=== PATIENT | male | born 1980 | race American Indian/Alaskan Native ===

== ENCOUNTER 2021-04-24 05:36 | Emergency (ER) | payer SELFPAY ==
[2021-04-24] MEDS ORDERED: SODIUM CHLORIDE 0.9% 1000 ML 1,000 ML IV ONE (05:40)
[2021-04-24] MEDS ORDERED: fentaNYL 100 MCG/2 ML INJ IV ONE (05:40)
[2021-04-24 06:17] LABS: Mean Corpuscular HGB Conc 30 % (32-34); Mean Corpuscular Volume 79 fl (84-94); Platelet Count 161 K/mm3 (140-440); Red Blood Count 4.89 M/mm3 (3.65-5.03)
--- NOTE | 2021-04-24 06:17 | Emergency Department Report ---
ED Abdominal Pain HPI - General Chief Complaint: Abdominal Pain Stated Complaint: UC FLARE-UP Time Seen by Provider: 04/24/21 05:39 Source: patient Mode of arrival: Ambulatory Limitations: No Limitations - History of Present Illness Initial Comments: Patient presents with a 2-month history of abdominal pain. He states he is having a flareup of his ulcerative colitis disease. He has moved here and does not have a specialist. He had been on prednisone before. He is describing a generalized abdominal pain. He has not had hematemesis or coffee-ground emesis. There is no melenic stool. He has no dysuria. This is his usual ulcerative colitis flareup. He states that there is no new symptomatology. Severity scale (0 -10): 9 - Related Data Previous Rx's Medication Instructions Recorded Last Taken Type Dicyclomine [Bentyl] 20 mg PO QID #30 tablet 04/24/21 Unknown Rx predniSONE [Deltasone] 50 mg PO QDAY #5 tab 04/24/21 Unknown Rx Allergies Allergy/AdvReac Type Severity Reaction Status Date / Time NSAIDS (Non-Steroidal AdvReac Unknown Verified 04/24/21 05:53 Anti-Inflamma ED Review of Systems ROS: Stated complaint: UC FLARE-UP Other details as noted in HPI Comment: All other systems reviewed and negative Constitutional: denies: fever Eyes: denies: vision change ENT: denies: epistaxis Respiratory: denies: cough Cardiovascular: denies: chest pain Endocrine: denies: unexplained weight loss Gastrointestinal: as per HPI Genitourinary: denies: dysuria Musculoskeletal: denies: back pain Skin: denies: rash Neurological: denies: headache Hematological/Lymphatic: denies: easy bruising ED Past Medical Hx - Past Medical History Previous Medical History?: Yes Additional medical history: Ulcerative colitis - Family History Family history: no significant - Medications Home Medications: Home Medications Medication Instructions Recorded Confirmed Last Taken Type Dicyclomine [Bentyl] 20 mg PO QID #30 tablet 04/24/21 Unknown Rx predniSONE [Deltasone] 50 mg PO QDAY #5 tab 04/24/21 Unknown Rx ED Physical Exam - General Limitations: No Limitations, Other (Pulsoxymeter normal) General appearance: alert, in no apparent distress - Head Head exam: Present: atraumatic, normocephalic - Eye Eye exam: Present: normal appearance, EOMI. Absent: scleral icterus - ENT ENT exam: Present: mucous membranes dry, normal external ear exam - Neck Neck exam: Present: normal inspection. Absent: meningismus - Respiratory Respiratory exam: Present: normal lung sounds bilaterally. Absent: respiratory distress - Cardiovascular Cardiovascular Exam: Present: regular rate, normal rhythm - GI/Abdominal GI/Abdominal exam: Present: soft, tenderness (Diffuse and mild). Absent: distended, guarding, rebound - Extremities Exam Extremities exam: Present: normal capillary refill - Back Exam Back exam: Absent: CVA tenderness (R), CVA tenderness (L) - Neurological Exam Neurological exam: Present: alert, oriented X3, normal gait. Absent: motor sensory deficit - Psychiatric Psychiatric exam: Present: normal affect, normal mood - Skin Skin exam: Present: warm, dry ED Course Vital Signs 04/24/21 04/24/21 05:39 09:18 Temperature 98.5 F Pulse Rate 85 73 Respiratory 18 16 Rate Blood Pressure 121/73 140/74 [Left] O2 Sat by Pulse 98 98 Oximetry - Reevaluation(s) Reevaluation #1: 04/24/21 06:17 Labs ordered. Old records reviewed. ED Medical Decision Making - Lab Data Result diagrams: 04/24/21 05:52 04/24/21 05:52 - Medical Decision Making Patient presented with an ulcerative colitis flareup. He did not appear to be septic or toxic. He had no clinical suspicion for bowel obstruction. There is no distention or tympany. He did not have peritoneal finding on exam. Labs have been reviewed. Patient did not require admission. He was treated symptomatically and referred to GI here. Critical Care Time: No Critical care attestation.: If time is entered above; I have spent that time in minutes in the direct care of this critically ill patient, excluding procedure time. ED Disposition Clinical Impression: Generalized abdominal pain Ulcerative colitis Qualifiers: Ulcerative colitis location: unspecified ulcerative colitis location Digestive disease complication type: without complication Qualified Code(s): K51.90 - Ulcerative colitis, unspecified, without complications Disposition: HOME / SELF CARE / HOMELESS Is pt being admited?: No Condition: Stable Instructions: Abdominal Pain, Adult, [id number], Ulcerative Colitis, Adult Additional Instructions: Have a bland diet. Drink plenty water. Return for problems. Follow-up with your regular doctor for recheck. Prescriptions: Dicyclomine [Bentyl] 20 mg PO QID #30 tablet predniSONE [Deltasone] 50 mg PO QDAY #5 tab Referrals: PRIMARY CARE, [Primary Care Provider] - 3-5 Days JUSTICE KELLER MD [Staff Physician] - 3-5 Days SARA DIAMOND MD [Staff Physician] - 3-5 Days
[2021-04-24 06:24] LABS: Hematocrit 38.4 % (35.5-45.6); Hemoglobin 11.5 gm/dl (11.8-15.2); Red Cell Distribution Width 21.3 % (13.2-15.2)
[2021-04-24 06:38] LABS: Alanine Aminotransferase 35 units/L (7-56); Albumin 4.3 g/dL (3.9-5); BUN/Creatinine Ratio 21; Blood Urea Nitrogen 23 mg/dL (9-20); Calcium 9.3 mg/dL (8.4-10.2); Hemolysis Index 6
[2021-04-24 09:19] VITALS: BP 140/74
== END 2021-04-24 09:18 | disposition home or self-care (01) ==
LOC: ED 05:36
DX: K51.90 Ulcerative colitis, unspecified, without complications (principal)
CPT/HCPCS: 36415; 80053; 83690; 85027; 99283; J3010; J7030; Q0162